=== PATIENT | female | born 2000 | race Asian ===

== ENCOUNTER 2024-11-09 01:18 | Emergency (ER) | payer MEDICAID ==
[~2024-11-09] VITALS: Ht 165.1 cm; Wt 49.0 kg
[2024-11-09 01:43] VITALS: BP 120/74; PULSE 87; RESP 18; TEMP 36.7; O2SAT 100; O2SAT 98
[2024-11-09] MEDS ORDERED: NITR-87 MT (05:04)
[2024-11-09 05:25] LABS: CLARITY URINE CLOUDY (CLEAR); COLOR URINE RED (YELLOW); PH URINE 5.5 (4.5-8.0); SPECIFIC GRAVITY URINE 1.05 (1.005-1.030)
[2024-11-09 05:26] LABS: GLUCOSE URINE NEGATIVE (NEGATIVE); KETONES URINE 1+ (NEGATIVE); LEUKOCYTE ESTERASE URINE 2+ (NEGATIVE); NITRITE URINE NEGATIVE (NEGATIVE); OCCULT BLOOD URINE 3+ (NEGATIVE); PROTEIN URINE 2+ (NEGATIVE); UROBILINOGEN URINE 0.2 E.U./dL (0.2-1.0)
[2024-11-09 05:29] LABS: BACTERIA URINE TRACE; RBC URINE TNTC /hpf (0-2); SQUAMOUS EPITHELIAL CELL URINE 1+ /lpf (RARE/1+)
== END 2024-11-09 05:09 | disposition home or self-care (01) ==
LOC: ER 01:18
DX: N39.0 Urinary tract infection, site not specified (principal)
CPT/HCPCS: 81003; 81025; 99283